=== PATIENT | female | born 1990 | race African-American/Black ===

== ENCOUNTER 2019-12-16 21:24 | Emergency (ER) | payer MEDICAID ==
[~2019-12-16] VITALS: Ht 172.7 cm; Wt 62.0 kg
[2019-12-17 05:21] VITALS: BP 129/68
== END 2019-12-17 09:06 | disposition home or self-care (01) ==
LOC: ER 21:24
DX: R68.89 Other general symptoms and signs (principal); Z59.0 Homelessness; F31.9 Bipolar disorder, unspecified; F20.9 Schizophrenia, unspecified
CPT/HCPCS: 99283